=== PATIENT | male | born 1940 | race Caucasian/White ===

== ENCOUNTER 2019-07-06 07:37 | Outpatient (CLI) | payer MEDICARE, OTHER ==
[2006-06-03 08:03] VITALS: BP 137/73
[~2019-07-06] VITALS: Ht 185.4 cm; Wt 101.0 kg
[2019-07-06] MEDS ORDERED: VITAMIN C500 MG PO (08:15)
[2019-07-06] MEDS ORDERED: NATURAL E400 IU PO (08:15)
[2019-07-06] MEDS ORDERED: B-121000 MCG PO (08:16)
[2019-07-06] MEDS ORDERED: PRINIVIL20 MG PO (08:16)
[2019-07-06] MEDS ORDERED: LASIX 40MG TABL40 MG PO (08:17)
[2019-07-06] MEDS ORDERED: ASPIRIN E.C. 8181 MG PO (08:18)
[2019-07-06] MEDS ORDERED: ZOCOR 20MG20 MG PO (08:18)
[2019-07-06] MEDS ORDERED: MASON NATURAL1000 MG PO (08:19)
[2019-07-06] MEDS ORDERED: TOPROL XL 50MG50 MG PO (08:20)
[2019-07-06] MEDS ORDERED: COUMADIN 5MG5 MG/TAB PO (08:21)
[2019-07-06] MEDS ORDERED: MERIBIN5 MG PO (08:22)
[2019-07-06 08:37] LABS: BASO % 0.2 % (0.0-2.0); EOS # 0.1 (0.0-0.7); EOS % 2.2 % (0-4.0); GRAN # 3.2 (1.4-6.5); GRAN % 70.3 % (42.2-75.2); HEMOGLOBIN 13.1 g/dl (13.5-18.0); LYMPH # 0.7 (1.2-3.4); LYMPH % 16.3 % (20.0-51.0); MEAN CELL VOLUME 94 fl (80.0-100.0); MEAN CORPUSCULAR HEMOGLOBIN 30 pg (27.0-31.0); MEAN CORPUSCULAR HGB CONC 32 g/dl (33.0-37.0); MEAN PLATELET VOLUME 9.9 fl (7.4-10.4); MONO # 0.5 (0.1-0.6); MONO % 10.8 % (1.7-9.3); PLATELET COUNT 80 K/mm3 (130-400); RED BLOOD COUNT 4.38 M/mm3 (4.20-5.60); REDCELL DISTRIBUTION WIDTH-CV 14.3 % (11.5-14.5)
[2019-07-06 08:39] LABS: INR 4.4 (0.8-3.0)
[2019-07-06 08:45] LABS: PROTHROMBIN TIME 54.1 SECONDS (9.7-12.8)
--- NOTE | 2019-07-06 08:48 | NUR ---
Critical results received from lab. PT 54.1 and INR 4.4. These are reported to Dr. Klein in person at 0848. He speaks with the patient and his family. Patient is to be rescheduled for Tuesday07/09/19. He is instructed by Dr. Klein to stop his coumadin until then.
--- NOTE | 2019-07-06 09:20 | NUR ---
Dismissal instructions gone over with patient and patient's spouse. Both verbalize understanding and all questions answered. Patient understands that he is not supposed to hold his Warfarin for his rescheduled procedure on Tuesday.
[2019-07-06 09:24] VITALS: BP 123/59; PULSE 60; TEMP 97.8
== END 2019-07-06 09:20 | disposition home or self-care (01) ==
LOC: SDCO 07:37
PROVIDERS: Urology
DX: J90 Pleural effusion, not elsewhere classified (principal); I25.10 Atherosclerotic heart disease of native coronary artery without angina pectoris; I11.0 Hypertensive heart disease with heart failure; I50.9 Heart failure, unspecified; I73.9 Peripheral vascular disease, unspecified; G47.30 Sleep apnea, unspecified; Z79.01 Long term (current) use of anticoagulants; Z82.49 Family history of ischemic heart disease and other diseases of the circulatory system; Z87.891 Personal history of nicotine dependence; Z53.8 Procedure and treatment not carried out for other reasons

== ENCOUNTER 2019-07-09 07:12 | Outpatient (CLI) | payer MEDICARE, OTHER ==
[2006-06-03 08:03] VITALS: BP 137/73
[~2019-07-09] VITALS: Ht 185.4 cm; Wt 100.9 kg
[~2019-07-09 07:12] MED LIST: ASPIRIN E.C. 8181 MG PO; B-121000 MCG PO; COUMADIN 5MG5 MG/TAB PO; LASIX 40MG TABL40 MG PO; MASON NATURAL1000 MG PO; MERIBIN5 MG PO; NATURAL E400 IU PO; PRINIVIL20 MG PO; TOPROL XL 50MG50 MG PO; VITAMIN C500 MG PO; ZOCOR 20MG20 MG PO
[2019-07-09 07:52] VITALS: BP 105/53; PULSE 62; TEMP 97.6
[2019-07-09 08:03] LABS: INR 1.7 (0.8-3.0); PROTHROMBIN TIME 20.7 SECONDS (9.7-12.8)
[2019-07-09 08:50] VITALS: BP 99/54; PULSE 114; TEMP 97.6
--- NOTE | 2019-07-09 08:50 | NUR ---
Patient arrives back from IAC alert, denies nausea. Reports slight pain with deep breath. Bandaid on left mid back is clean/dry/intact. Spouse at bedside. Patient monitor applied, vitals stable. Patient given juice and muffin.
[2019-07-09 09:05] VITALS: BP 110/59; PULSE 121
--- NOTE | 2019-07-09 09:05 | NUR ---
Patient tolerates juice and muffin without any nausea. Radiology into see patient.
[2019-07-09 09:20] VITALS: BP 118/61; PULSE 72
--- NOTE | 2019-07-09 09:35 | NUR ---
Dr Klein reports patient's chest x-ray has no sign of pneumothorax and that patient can be discharged to home.
[2019-07-09 09:37] LABS: PLEURAL FLUID RBC 13000 /mm3 (0-0); PLEURAL FLUID WBC 1194 /mm3
[2019-07-09 09:39] LABS: PLEURAL FLUID APPEARANCE HAZY; PLEURAL FLUID COLOR AMBER
--- NOTE | 2019-07-09 09:40 | NUR ---
Dismissal instructions gone over with patient and patient's spouse. Both verbalize understanding and all questions answered.
--- NOTE | 2019-07-09 09:45 | NUR ---
Patient discharged to private vehicle via wheelchair without any complications. Patient and spouse leave thanking staff for services.
[2019-07-09 10:04] LABS: GLUCOSE,PLEURAL FLUID 111 mg/dL; TOTAL PROTEIN,PLEURAL FLUID 2.7 gm/dL
== END 2019-07-09 09:45 | disposition home or self-care (01) ==
LOC: SDCO 07:12
PROVIDERS: Internal Medicine Pulmonary Disease
DX: J90 Pleural effusion, not elsewhere classified (principal); I25.10 Atherosclerotic heart disease of native coronary artery without angina pectoris; I11.0 Hypertensive heart disease with heart failure; I50.9 Heart failure, unspecified; Z86.711 Personal history of pulmonary embolism; Z86.718 Personal history of other venous thrombosis and embolism; Z82.49 Family history of ischemic heart disease and other diseases of the circulatory system; Z77.22 Contact with and (suspected) exposure to environmental tobacco smoke (acute) (chronic); Z87.891 Personal history of nicotine dependence
CPT/HCPCS: 19804

== ENCOUNTER 2019-07-25 07:03 | Day surgery (SDC) | payer MEDICARE, OTHER ==
[2006-06-03 08:03] VITALS: BP 137/73
[~2019-07-25] VITALS: Ht 185.4 cm; Wt 101.0 kg
[2019-07-25] MEDS ORDERED: XALATAN EYE DROPS OU (07:52)
[2019-07-25 09:01] VITALS: BP 110/63; PULSE 113; TEMP 98.3
--- NOTE | 2019-07-25 09:01 | NUR ---
Pt returns from thoracentesis via cart and this RN assist to Ambulatory bay 7. present in room. Monitors on and alarms set. Pt has no complaints but has the desire to rest. Discussion occurs regarding performing the right thoracentesis later this morning. Pt and decide that today would be best if the chest x-rays look good. Procedure will be performed in radiology. Pt desires to rest and allowed to do so.
--- NOTE | 2019-07-25 09:30 | NUR ---
X-ray here for chest x-ray.
--- NOTE | 2019-07-25 09:40 | NUR ---
Pt ambulates to restroom with Xiomy, DIE SINKER APPRENTICE assist, and returns after voiding. remains in room. No complications.
--- NOTE | 2019-07-25 10:00 | NUR ---
Pt continues to rest.
[2019-07-25 10:39] VITALS: BP 116/60; PULSE 115; TEMP 97.2
[2019-07-25 11:05] VITALS: BP 111/60; PULSE 97
--- NOTE | 2019-07-25 11:17 | NUR ---
Transport pt via cart and this RN from Restrictive Preparation Operator to Ultrasound for right thoracentesis. Pt's desires to remain in pt room in Ambulatory.
--- NOTE | 2019-07-25 11:20 | NUR ---
Pt ambulates from cart to ultrasound procedure table. US Karlee tech present.
--- NOTE | 2019-07-25 11:38 | NUR ---
Dr. Nelson present and starting right thoracentesis procedure.
--- NOTE | 2019-07-25 12:00 | NUR ---
Pt ambulates from ultrasound procedure room to cart with RN assist. Then pt transported back to Wound Care Rn bay 7.
[2019-07-25 12:05] VITALS: BP 112/72; PULSE 63; TEMP 97.3
--- NOTE | 2019-07-25 12:05 | NUR ---
Pt tolerated procedure well. Monitors on and alarms set. Call light within reach. Pt's present. Pt desires water and tolerates well. Pt denies pain or nausea.
[2019-07-25 12:30] VITALS: BP 115/65; PULSE 59
[2019-07-25 12:45] VITALS: BP 110/60; PULSE 57
--- NOTE | 2019-07-25 12:45 | NUR ---
Radiologist called, and patient has no pneumothorax on right side.
[2019-07-25 12:55] LABS: PLEURAL FLUID RBC 6000 /mm3 (0-0); PLEURAL FLUID WBC 506 /mm3
[2019-07-25 12:56] LABS: PLEURAL FLUID APPEARANCE HAZY; PLEURAL FLUID COLOR YELLOW
--- NOTE | 2019-07-25 13:00 | NUR ---
Discharge instructions given to patient and . All questions answered to their satisfaction. Handed to them are a thank you card, discharge information, an appointment card, diagnosis information, and a discharge med sheet.
[2019-07-25 13:10] LABS: GLUCOSE,PLEURAL FLUID 108 mg/dL; TOTAL PROTEIN,PLEURAL FLUID 2.3 gm/dL
--- NOTE | 2019-07-25 13:15 | NUR ---
Pt transferred out of hospital via wheelchair and this RN to waiting private vehicle driven by .
== END 2019-07-25 13:15 | disposition home or self-care (01) ==
LOC: SDCO 07:03 → EDSTATUS 08:30 → SDCO 08:30
PROVIDERS: Internal Medicine Pulmonary Disease
DX: J90 Pleural effusion, not elsewhere classified (principal); R91.8 Other nonspecific abnormal finding of lung field; I50.9 Heart failure, unspecified; G47.30 Sleep apnea, unspecified; Z87.891 Personal history of nicotine dependence; Z79.82 Long term (current) use of aspirin; Z79.899 Other long term (current) drug therapy; Z99.89 Dependence on other enabling machines and devices
CPT/HCPCS: 19804

== ENCOUNTER 2019-09-04 03:25 | Inpatient (IN) | payer MEDICARE, OTHER ==
[2019-09-04] VITALS (449 sets, daily range): BP systolic 100–124; BP diastolic 53–61; PULSE 64–80; TEMP 97.6–100; O2SAT 77–100
[~2019-09-04] VITALS: Ht 188 cm; Wt 90.3 kg
[~2019-09-04 03:25] MED LIST changes: +XALATAN EYE DROPS OU
--- NOTE | 2019-09-04 04:50 | NUR ---
To room 325 via stretcher-direct admit from [facility]. Admission vitals 124/53, pulse 80, resp 26 o2 sat 86 on 3L/NC. LUCHO Tracy notified of arrival. Alert-oriented to person only. States "where am I and why am I here." LUCHO Tracy in room to evaluate. Requests spouse be called to determine baseline LOC and Medications. Attempt made x2 call home and cell of spouse and Son. Message left. Initial assessment complete. STAT orders received for ABG, EKG and Labs. Cardiopulmonary notified.
[2019-09-04 05:05] LABS: ARTERIAL BLD GAS O2 SATURATION 91.9 % (92-100); ARTERIAL BLD GAS TCO2 CT 37.7; ARTERIAL BLOOD GAS BASE EXCESS 5.4 (-2-2); ARTERIAL BLOOD GAS HCO3 35.2 meq/L (22-26); ARTERIAL BLOOD GAS PO2 67.9 mmHg (80-100); ARTERIAL BLOOD GAS pH 7.25 (7.35-7.45)
[2019-09-04 05:06] LABS: ARTERIAL BLOOD GAS PCO2 81.7 mmHg (35-45)
--- NOTE | 2019-09-04 05:15 | NUR ---
STAT order for bipap. Cardiopulmonary in room initiating.
--- NOTE | 2019-09-04 05:23 | NUR ---
Return call from Ywnxdjn-legfbv-mefz medication list. Med rec updated. States patient is not not usually confused but became confused tuesday/early tuesday morning-not knowing where he was. States she found him in living room tuesday night with home O2 off/shivering with no clothes on. States this has never happened before. Relayed info to LUCHO Tracy who is now speaking with spouse.
--- NOTE | 2019-09-04 05:50 | NUR ---
Report called to FERMIN Martinez. Transferred to ICU 8 via bed-cardiopulmonary present for bipap.
[2019-09-04 06:02] LABS: HEMATOCRIT 39.8 % (42.0-52.0); HEMOGLOBIN 11.6 g/dl (13.5-18.0); MEAN CELL VOLUME 100 fl (80.0-100.0); MEAN CORPUSCULAR HEMOGLOBIN 29 pg (27.0-31.0); MEAN CORPUSCULAR HGB CONC 29 g/dl (33.0-37.0); MEAN PLATELET VOLUME 9.4 fl (7.4-10.4); PLATELET COUNT 147 K/mm3 (130-400); RED BLOOD COUNT 3.98 M/mm3 (4.20-5.60); REDCELL DISTRIBUTION WIDTH-CV 14.4 % (11.5-14.5)
[2019-09-04 06:11] LABS: ANION GAP 6 mmol/L (7-16); BLOOD UREA NITROGEN 42 mg/dL (9-20); CALCIUM 9.1 mg/dL (8.4-10.2); CARBON DIOXIDE 36 mmol/L (22-30); CHLORIDE 100 mmol/L (98-107); CREATININE, serum 0.94 (0.66-1.25); GLUCOSE 188 mg/dL (74-106); MAGNESIUM 2.2 mg/dL (1.6-2.3); PHOSPHOROUS 4.8 mg/dL (2.5-4.5); POTASSIUM 5.4 mmol/L (3.4-5.0); SODIUM 143 mmol/L (137-145)
[2019-09-04 06:14] LABS: INR 4.2 (0.8-3.0)
[2019-09-04 06:24] LABS: TROPONIN-I < 0.012 ng/mL (0.000-0.035)
[2019-09-04 06:37] LABS: ARTERIAL BLD GAS O2 SATURATION 96.9 % (92-100); ARTERIAL BLD GAS TCO2 CT 34.4; ARTERIAL BLOOD GAS BASE EXCESS 3.5 (-2-2); ARTERIAL BLOOD GAS HCO3 32.2 meq/L (22-26); ARTERIAL BLOOD GAS PO2 93.9 mmHg (80-100); ARTERIAL BLOOD GAS pH 7.27 (7.35-7.45)
[2019-09-04 06:40] LABS: ARTERIAL BLOOD GAS PCO2 71.8 mmHg (35-45)
[2019-09-04 06:42] LABS: THYROID STIMULATING HORMONE < 0.015 uIU/mL (0.465-4.680)
[2019-09-04 06:46] LABS: HYALINE CAST >12 /lpf; MUCOUS Present /lpf; PH 5 (5-8); SQUAMOUS EPITHELIAL 0-2 /hpf; URINE APPEARANCE Clear; URINE BACTERIA Rare /hpf; URINE BILIRUBIN Negative (NEGATIVE); URINE BLOOD Negative (NEGATIVE); URINE COLOR Yellow; URINE GLUCOSE Negative (NEGATIVE); URINE KETONE Negative (NEGATIVE); URINE LEUKOCYTE ESTERASE Negative (NEGATIVE); URINE NITRATE Negative (NEGATIVE); URINE PROTEIN(semi-quant) Negative (NEGATIVE); URINE RBC 0-2 /hpf; URINE UROBILINOGEN Negative (NEGATIVE)
[2019-09-04 06:48] LABS: PROTHROMBIN TIME 50.7 SECONDS (9.7-12.8)
--- NOTE | 2019-09-04 07:15 | NUR ---
Report received from Cher at 0531, patient arrive in ICU via bed at 0550. Patient able to follow commands when arrive and showed steady decline in mental status over the next hour. Glucose checked-see results, pupils equal and reactive but patient only responds to painful stimuli. eICU called to check in with patient at 0639-notified provider of mental status change and received new orders Notified Dr. Pillai of status change, ABG results and eICU orders at 0645- asked to consult Dr. Ernie Klein called at 0656-received orders to have anesthesia intubate, surgery to place central line if AIVS not available and specific vent settings Notified , Miguelito of patient status and need to intubate at 0705-gave verbal agreement to intubate
[2019-09-04 07:20] LABS: BAND 1 % (0-10); LYMPHOCYTE 3 % (20.0-51.0); NEUTROPHILS 96 % (42.0-75.2); PLATELET ESTIMATE NORMAL (NORMAL)
[2019-09-04 09:21] LABS: ARTERIAL BLD GAS O2 SATURATION 98.4 % (92-100); ARTERIAL BLD GAS TCO2 CT 32.7; ARTERIAL BLOOD GAS BASE EXCESS 7.3 (-2-2); ARTERIAL BLOOD GAS HCO3 31.4 meq/L (22-26); ARTERIAL BLOOD GAS PCO2 42.5 mmHg (35-45); ARTERIAL BLOOD GAS PO2 102.3 mmHg (80-100); ARTERIAL BLOOD GAS pH 7.49 (7.35-7.45)
--- NOTE | 2019-09-04 09:41 | NUR ---
Pleurx drain with thick yellow green drainage under dressing. Old dressing removed and cap and site cleaned and suction bottle attached with less than 3ml of drainage over a [address] Klein removed drain and applied pressure. Tegaderm placed. Charlette CHRISTENSEN in room and obtained culture of tip of pleurx drain itself.
--- NOTE | 2019-09-04 09:59 | NUR ---
Vancomycin Initial Dosing Pharmacy Note Ordering provider: MD Ernie Indication/duration: EMPIRIC LABS: WBC 6.2, SCr 0.94, CrCl 56 Recommendation: vancomycin 17mg/kg Maintenance dose: 1.5 grams every 12 hours Trough goal: 15-20 ug/mL. trough 09/05 @0930
--- NOTE | 2019-09-04 10:31 | NUR ---
The patient is intubated at this time. Therefore, LARRY contacted the patient's , Miguelito (ph# [phone]) to complete initial intake. The patient lives in [place] with Miguelito. The patient has a cane and a walker which he purchased to have knee replacement at the first of the year. Miguelito reports the patient did not have the surgery due to other medical conditions that arose. The patient uses oxygen at home at 2L but yesterday, 09/02 went to 3L. [employer] provided supplies. The patient's PCP is Dr. Plummer and patient receives medications from [facility]. The patient does not have advanced directives in the EMR. Miguelito was provided with contact information in case she has any questions. client services vice president will continue to monitor.
[2019-09-04 14:30] LABS: ARTERIAL BLD GAS O2 SATURATION 91.4 % (92-100); ARTERIAL BLD GAS TCO2 CT 34.3; ARTERIAL BLOOD GAS BASE EXCESS 9.8 (-2-2); ARTERIAL BLOOD GAS HCO3 33.1 meq/L (22-26); ARTERIAL BLOOD GAS PCO2 39.3 mmHg (35-45); ARTERIAL BLOOD GAS PO2 52.3 mmHg (80-100); ARTERIAL BLOOD GAS pH 7.54 (7.35-7.45)
[2019-09-04 17:15] LABS: ARTERIAL BLD GAS O2 SATURATION 97.6 % (92-100); ARTERIAL BLD GAS TCO2 CT 32.1; ARTERIAL BLOOD GAS BASE EXCESS 6.2 (-2-2); ARTERIAL BLOOD GAS HCO3 30.7 meq/L (22-26); ARTERIAL BLOOD GAS PCO2 44.2 mmHg (35-45); ARTERIAL BLOOD GAS PO2 99.4 mmHg (80-100); ARTERIAL BLOOD GAS pH 7.46 (7.35-7.45)
[2019-09-04 17:36] LABS: INR 2.6 (0.8-3.0); PROTHROMBIN TIME 31.8 SECONDS (9.7-12.8)
[2019-09-04 17:38] LABS: CALCIUM 9.2 mg/dL (8.4-10.2); CREATININE, serum 1.07 (0.66-1.25); POTASSIUM 4.6 mmol/L (3.4-5.0)
[2019-09-04 23:08] LABS: COLLECTION METHOD CLEAN CATCH
[2019-09-05] VITALS (872 sets, daily range): BP systolic 95–117; BP diastolic 51–63; PULSE 71–88; TEMP 97.4–98.7; O2SAT 61–100
[2019-09-05 04:59] LABS: ARTERIAL BLD GAS O2 SATURATION 95.5 % (92-100); ARTERIAL BLD GAS TCO2 CT 34.3; ARTERIAL BLOOD GAS BASE EXCESS 8.9 (-2-2); ARTERIAL BLOOD GAS HCO3 32.9 meq/L (22-26); ARTERIAL BLOOD GAS PO2 75.1 mmHg (80-100)
[2019-09-05 05:31] LABS: BASO % 0.2 % (0.0-2.0); GRAN # 5.2 (1.4-6.5); GRAN % 83.4 % (42.2-75.2); HEMOGLOBIN 10.5 g/dl (13.5-18.0); LYMPH # 0.5 (1.2-3.4); LYMPH % 7.4 % (20.0-51.0); MEAN CELL VOLUME 96 fl (80.0-100.0); MEAN CORPUSCULAR HEMOGLOBIN 30 pg (27.0-31.0); MEAN CORPUSCULAR HGB CONC 31 g/dl (33.0-37.0); MEAN PLATELET VOLUME 10.1 fl (7.4-10.4); MONO # 0.5 (0.1-0.6); MONO % 8.7 % (1.7-9.3); PLATELET COUNT 108 K/mm3 (130-400); RED BLOOD COUNT 3.56 M/mm3 (4.20-5.60); REDCELL DISTRIBUTION WIDTH-CV 14.9 % (11.5-14.5)
[2019-09-05 05:32] LABS: HEMATOCRIT 34.2 % (42.0-52.0)
[2019-09-05 05:33] LABS: BILIRUBIN,TOTAL 2.6 mg/dL (0.0-1.0); CALCIUM 8.9 mg/dL (8.4-10.2); CREATININE, serum 1.39 (0.66-1.25); MAGNESIUM 2.1 mg/dL (1.6-2.3); PHOSPHOROUS 3.4 mg/dL (2.5-4.5); POTASSIUM 4.3 mmol/L (3.4-5.0); TOTAL PROTEIN 6.5 gm/dL (6.4-8.2)
[2019-09-05 05:35] LABS: INR 1.9 (0.8-3.0)
[2019-09-05 05:51] LABS: CHOLESTEROL RISK RATIO 5.2
--- NOTE | 2019-09-05 07:20 | NUR ---
Bedside report received from FERMIN King.
--- NOTE | 2019-09-05 08:00 | NUR ---
Assessment completed. Pt sedated, on ventilator. Bilat soft wrist restraints remain on. Pt reaches for ETT/OGT with hand during repositioning. Pt becomes more agitated after turn. Propofol gtt increased for sedation. Remains on propofol and fentanyl gtt for sedation. Pt tolerating ventilator, resp even, unlabored. Oral care provided. minimal secretions from ETT and mouth. Booth to DD with venessa, clear urine. VSS. Will monitor.
--- NOTE | 2019-09-05 11:22 | NUR ---
SW attended clinical rounds with the team. The patient is to have a Thoracentesis on 09/05. The patient remains intubated. Will continue to monitor.
--- NOTE | 2019-09-05 12:00 | NUR ---
Assessment completed. Pt sedated, on ventilator. Resp even, unlabored. Pt opens eyes with turn, moves hands toward ETT with turn. bilat soft wrist restraints remain on.
--- NOTE | 2019-09-05 19:37 | NUR ---
BEDSIDE REPORT GIVEN TO FERMIN BYRD.
[2019-09-05 21:38] LABS: ARTERIAL BLD GAS O2 SATURATION 96.4 % (92-100); ARTERIAL BLD GAS TCO2 CT 32.7; ARTERIAL BLOOD GAS BASE EXCESS 8.1 (-2-2); ARTERIAL BLOOD GAS HCO3 31.5 meq/L (22-26); ARTERIAL BLOOD GAS PCO2 39.1 mmHg (35-45); ARTERIAL BLOOD GAS PO2 83.3 mmHg (80-100); ARTERIAL BLOOD GAS pH 7.52 (7.35-7.45)
[2019-09-06] VITALS (1268 sets, daily range): BP systolic 94–129; BP diastolic 49–71; PULSE 70–99; TEMP 97.9–99.7; O2SAT 88–100
[2019-09-06 05:26] LABS: BASO % 0.2 % (0.0-2.0); EOS % 0.4 % (0-4.0); GRAN # 4.3 (1.4-6.5); GRAN % 84.6 % (42.2-75.2); HEMOGLOBIN 10.2 g/dl (13.5-18.0); LYMPH # 0.3 (1.2-3.4); LYMPH % 6.3 % (20.0-51.0); MEAN CELL VOLUME 96 fl (80.0-100.0); MEAN CORPUSCULAR HEMOGLOBIN 30 pg (27.0-31.0); MEAN CORPUSCULAR HGB CONC 31 g/dl (33.0-37.0); MONO # 0.4 (0.1-0.6); MONO % 8.1 % (1.7-9.3); PLATELET COUNT 106 K/mm3 (130-400); RED BLOOD COUNT 3.44 M/mm3 (4.20-5.60)
[2019-09-06 05:35] LABS: INR 1.6 (0.8-3.0); PROTHROMBIN TIME 18.7 SECONDS (9.7-12.8)
[2019-09-06 05:39] LABS: ALBUMIN 2.9 gm/dL (3.5-5.0); BILIRUBIN,TOTAL 1.8 mg/dL (0.0-1.0); CALCIUM 8.2 mg/dL (8.4-10.2); CREATININE, serum 1.32 (0.66-1.25); MAGNESIUM 2.2 mg/dL (1.6-2.3); PHOSPHOROUS 3.4 mg/dL (2.5-4.5); POTASSIUM 3.7 mmol/L (3.4-5.0); TOTAL PROTEIN 6.3 gm/dL (6.4-8.2)
[2019-09-06 05:42] LABS: ARTERIAL BLD GAS O2 SATURATION 96.5 % (92-100); ARTERIAL BLD GAS TCO2 CT 35.5; ARTERIAL BLOOD GAS BASE EXCESS 9.5 (-2-2); ARTERIAL BLOOD GAS HCO3 34.1 meq/L (22-26); ARTERIAL BLOOD GAS PCO2 46.3 mmHg (35-45); ARTERIAL BLOOD GAS PO2 86.2 mmHg (80-100); ARTERIAL BLOOD GAS pH 7.49 (7.35-7.45)
--- NOTE | 2019-09-06 08:30 | NUR ---
VERBAL CONSENT FOR CENTRAL LINE PLACEMENT AND RIGHT SIDED THORACENTESIS OBTAINED FROM , KERI GARCIA. DANNA WELLINGTON SIGNED SECOND WITNESS ON CONSENT FORMS. ASSISTED DR CHOWDHURY IN RIGHT IJ CENTRAL LINE PLACEMENT. 10MG VECURONIUM ADMINISTERED PRIOR TO PROCEDURE PER DR CHOWDHURY ORDER. PROPOFOL AND FENT GTT'S INCREASED FOR SEDATION. PT TOLERATED WELL. PLACEMENT VERFIED VIA XRAY. DR CHOWDHURY ATTEMPTED TO VISUALIZE RIGHT PLEURAL EFFUSION BUT WAS UNSUCCESSFUL. DR CHOWDHURY SPOKE WITH RADIOLOGY FOR THORACENTESIS. SPOKE WITH JESS IN US. PLAN IS TO PEFORM THORA BEFORE 1300.
--- NOTE | 2019-09-06 13:00 | NUR ---
JESS FROM US PRESENT TO ASSESS PLEURAL SPACE FOR FLUID FOR POSSIBLE THORACENTESIS. JESS PREPPED PATIENT FOR THORA AND CONTACTED DR JOAQUIN TO PERFORM THORACENTESIS. DR JOAQUIN INSERTED PLEUREX AND REMOVED 2200 OF SEROUS FLUID FROM RIGHT PLEURAL SPACE. FLUID SENT FOR PATHOLOGY. PATIENT TOLERATED WELL. SITE COVERED WITH BANDAID.
--- NOTE | 2019-09-06 14:00 | NUR ---
PERIPHERAL IV TO RIGHT FOREARM AND RIGHT AC DISCONTINUED D/T CENTRAL LINE PLACEMENT
[2019-09-06 14:15] LABS: GLUCOSE,PLEURAL FLUID 142 mg/dL; TOTAL PROTEIN,PLEURAL FLUID 2.2 gm/dL
[2019-09-06 14:29] LABS: PLEURAL FLUID RBC 18000 /mm3 (0-0); PLEURAL FLUID WBC 351 /mm3
[2019-09-06 14:31] LABS: PLEURAL FLUID COLOR RED
[2019-09-06 14:32] LABS: PLEURAL FLUID APPEARANCE HAZY
--- NOTE | 2019-09-06 16:00 | NUR ---
PER PATIENT'S REQUEST PATIENT'S FACE SHAVED.
--- NOTE | 2019-09-06 16:58 | NUR ---
PATIENT'S AND SON BOTH CALLED IN TO GET UPDATE. FAMILY UPDATED ON PATIENT'S STATUS. DID HAVE SOME QUESTIONS REGARDING CODE STATUS. STATED SHE WILL CONSULT SONS AND THEN CALL BACK TODAY OR TOMORROW REGARDING CODE STATUS.
--- NOTE | 2019-09-06 18:46 | NUR ---
SPOKE WITH PATIENT'S AGAIN AND AFTER SPEAKING WITH HER SONS THE WOULD LIKE TO MAKE PATIENT A DNR. I CLARIFIED THAT OF NOW PATIENT IS A CHEMICAL CODE ONLY. STATES SHE WOULD LIKE TO JUST LET PATIENT GO PEACEFULLY IF HIS HEART WERE TO STOP. WILL CALL PROVIDER AND NOTIFY.
--- NOTE | 2019-09-06 18:49 | NUR ---
AMEYA JEWELL, CALLED AND NOTIFIED OF CODE STATUS UPDATE. WOULD ALSO LIKE PROVIDER TO CALL AND UPDATE HER TOMORROW SO BEST STATES SHE WILL PASS IT ON TO CALL TOMORROW FOR UPDATE TO ONCOMING PROVIDER.
[2019-09-07] VITALS (1313 sets, daily range): BP systolic 100–120; BP diastolic 48–71; PULSE 70–88; TEMP 98–100.5; O2SAT 45–100
[2019-09-07 05:13] LABS: ALBUMIN 2.6 gm/dL (3.5-5.0); BILIRUBIN,TOTAL 1.8 mg/dL (0.0-1.0); CREATININE, serum 1.41 (0.66-1.25); MAGNESIUM 2.6 mg/dL (1.6-2.3); PHOSPHOROUS 3.7 mg/dL (2.5-4.5); POTASSIUM 3.7 mmol/L (3.4-5.0)
[2019-09-07 05:32] LABS: ARTERIAL BLD GAS O2 SATURATION 98.3 % (92-100); ARTERIAL BLD GAS TCO2 CT 37.5; ARTERIAL BLOOD GAS HCO3 35.9 meq/L (22-26); ARTERIAL BLOOD GAS pH 7.43 (7.35-7.45)
[2019-09-07 05:33] LABS: ARTERIAL BLOOD GAS PO2 123.7 mmHg (80-100)
--- NOTE | 2019-09-07 07:15 | NUR ---
BEDSIDE REPORT RECEIVED FROM FERMIN BYRD.
--- NOTE | 2019-09-07 08:25 | NUR ---
DR CHOWDHURY AT BEDSIDE. PROPOFOL AND FENTANYL GTTS ON HOLD.
--- NOTE | 2019-09-07 08:45 | NUR ---
Propofol and Fentanyl gtts turned off at 0815. Pt more alert, slightly agitated. Explained CPAP trial to pt. Pt follows simple commands, nods head. RT notified pt is more alert. Will come down to change vent setting to CPAP.
--- NOTE | 2019-09-07 09:20 | NUR ---
Pt on CPAP 01/15, fio2 35% at 0900. tidal volume 270-300ml. Pt became more agitated at 0915. RT notified. low tidal volumes, HR 110s, O2 sats remain above 95%. RT suctioned thick, keene sputum from ETT. Bilat soft wrist restraints remain on. Pt tries to reach for ETT during suction. Explained CPAP trial with pt. Pt more calm after suctioning. HR back to 90s. SPO2 97%. Remains on CPAP trial. Tidal volumes now 350ml.
[2019-09-07 09:41] LABS: MUCOUS Present /lpf; PH 8 (5-8); SQUAMOUS EPITHELIAL None Seen /hpf; URINE APPEARANCE Clear; URINE BACTERIA None Seen /hpf; URINE BILIRUBIN Negative (NEGATIVE); URINE BLOOD 2+ (NEGATIVE); URINE COLOR Yellow; URINE GLUCOSE Negative (NEGATIVE); URINE KETONE Negative (NEGATIVE); URINE LEUKOCYTE ESTERASE Trace (NEGATIVE); URINE NITRATE Negative (NEGATIVE); URINE PROTEIN(semi-quant) 1+ (NEGATIVE); URINE RBC 20-50 /hpf; URINE UROBILINOGEN >=4.0 mg/dL (NEGATIVE)
[2019-09-07 09:53] LABS: COLLECTION METHOD CATHETER
--- NOTE | 2019-09-07 11:00 | NUR ---
DRESSING CHANGE ON RIGHT IJ TLC. OLD BLOOD NOTED ON PREVIOUS BIOPATCH. SUTURES REMAIN INTACT. SITE CLEANED, NEW BIOPATCH APPLIED AND TEGADERM.
--- NOTE | 2019-09-07 11:16 | NUR ---
OFF CPAP, VENT BACK TO PREVIOUS SETTINGS. PROPOFOL GTT STARTED FOR SEDATION. PT TRYING TO REACH FOR ETT. BILAT SOFT WRIST RESTRAINTS REMAIN ON.
--- NOTE | 2019-09-07 12:33 | NUR ---
The patient failed an attempt at CPAP with pressure support trial and was reintubated this morning. Will continue to monitor.
--- NOTE | 2019-09-07 13:02 | NUR ---
LARRY contacted the patient's , Miguelito. Miguelito states she got a phone call from the physician this AM. LARRY gave Miguelito the weekend Trigence phone number in case she had any questions over the weekend.
--- NOTE | 2019-09-07 13:16 | NUR ---
PHYSICAL THERAPY WORKING WITH PT. PT BECAME VERY AGITATED. PHYSICAL THERAPY STOPPED AND SEDATION INCREASED.
[2019-09-07 16:46] LABS: BASO % 0.5 % (0.0-2.0); EOS # 0.1 (0.0-0.7); EOS % 2.9 % (0-4.0); GRAN # 3.3 (1.4-6.5); GRAN % 79.5 % (42.2-75.2); LYMPH # 0.3 (1.2-3.4); LYMPH % 8.3 % (20.0-51.0); MEAN CELL VOLUME 99 fl (80.0-100.0); MEAN CORPUSCULAR HGB CONC 30 g/dl (33.0-37.0); MEAN PLATELET VOLUME 9.9 fl (7.4-10.4); MONO # 0.4 (0.1-0.6); MONO % 8.6 % (1.7-9.3); PLATELET COUNT 78 K/mm3 (130-400); RED BLOOD COUNT 3.26 M/mm3 (4.20-5.60); REDCELL DISTRIBUTION WIDTH-CV 14.6 % (11.5-14.5)
[2019-09-07 16:47] LABS: INR 1.5 (0.8-3.0); PROTHROMBIN TIME 17.9 SECONDS (9.7-12.8)
[2019-09-07 16:57] LABS: HEMATOCRIT 32.4 % (42.0-52.0); HEMOGLOBIN 9.7 g/dl (13.5-18.0); MEAN CORPUSCULAR HEMOGLOBIN 30 pg (27.0-31.0)
--- NOTE | 2019-09-07 17:10 | NUR ---
Pt not on sedation vacation. Pt wakes up to voice, moves all extrem. Becomes agitated.
--- NOTE | 2019-09-07 18:00 | NUR ---
Right IJ TLC continues to ooze from site. Area cleaned, biopatch and 4x4 gauze applied with tegaderm. Sutures remain intact. Pt's gown and pillow case changed.
--- NOTE | 2019-09-07 18:46 | NUR ---
Pt's and son updated by phone of pt's status. Aware of infectious disease consult today. Questions answered to their satisfaction. Pt remains sedated, on ventilator. Resp even, unlabored. Opens eyes during turns. Squeezes both hands. Falls back asleep when not stimulated.
--- NOTE | 2019-09-07 19:28 | NUR ---
Report given to FERMIN Orr.
[2019-09-08] VITALS (1010 sets, daily range): BP systolic 90–125; BP diastolic 48–98; PULSE 71–95; TEMP 97.5–98.8; O2SAT 66–100
[2019-09-08 05:03] LABS: BASO % 0.2 % (0.0-2.0); EOS # 0.2 (0.0-0.7); EOS % 3.6 % (0-4.0); GRAN # 3.2 (1.4-6.5); LYMPH # 0.4 (1.2-3.4); LYMPH % 9.2 % (20.0-51.0); MEAN CELL VOLUME 100 fl (80.0-100.0); MEAN CORPUSCULAR HEMOGLOBIN 30 pg (27.0-31.0); MEAN CORPUSCULAR HGB CONC 30 g/dl (33.0-37.0); MEAN PLATELET VOLUME 10.4 fl (7.4-10.4); MONO # 0.4 (0.1-0.6); MONO % 8.5 % (1.7-9.3); PLATELET COUNT 78 K/mm3 (130-400); RED BLOOD COUNT 3.36 M/mm3 (4.20-5.60); REDCELL DISTRIBUTION WIDTH-CV 14.6 % (11.5-14.5)
[2019-09-08 05:04] LABS: HEMATOCRIT 33.7 % (42.0-52.0)
--- NOTE | 2019-09-08 05:06 | NUR ---
Sedation vacation started. Plan is to have all sedation off by [address] Klein. Staff at bedside to help reorient and calm patient as needed.
[2019-09-08 05:13] LABS: CALCIUM 8.1 mg/dL (8.4-10.2); CREATININE, serum 1.11 (0.66-1.25); POTASSIUM 3.5 mmol/L (3.4-5.0)
[2019-09-08 05:40] LABS: ARTERIAL BLD GAS O2 SATURATION 97.5 % (92-100); ARTERIAL BLD GAS TCO2 CT 34.4; ARTERIAL BLOOD GAS HCO3 32.8 meq/L (22-26); ARTERIAL BLOOD GAS PCO2 52.7 mmHg (35-45); ARTERIAL BLOOD GAS PO2 97.9 mmHg (80-100); ARTERIAL BLOOD GAS pH 7.41 (7.35-7.45)
--- NOTE | 2019-09-08 07:21 | NUR ---
PT SWITHCED TO CPAP 5/+5 TRIAL AT THIS TIME. SEDATION TURNED OFF. FERMIN JALLOH IN ROOM. PT BOOSTED AND SAT UP IN BED. PT ALERT AND FOLLOWING COMMANDS. SUCTIONED FOR SMALL AMOUNT OF THICK PEREZ. BBSH COARSE WITH DIMINISHED BASES.
--- NOTE | 2019-09-08 08:30 | NUR ---
Pt tolerating venitlator mostly, occasionaly pt becomes aggitated, attempting to slide self down in bed and attempting to pull at ETTube. Pt oriented, educated and calmed down. Pt able to use nonverbal communication to state pt is uncomfortable with ETTube and wishing it be removed.
--- NOTE | 2019-09-08 09:40 | NUR ---
PT EXTUBATED PER DR. CHOWDHURY AFTER SEVERAL HOURS OF CPAP. PT EXTUBATED TO 5L OM. NO DISTRESS NOTED. SUCTIONED PRIOR TO EXTUBATION FOR A SMALL AMOUNT OF PEREZ SECRETIONS. NO STRIDOR NOTED.
--- NOTE | 2019-09-08 10:54 | NUR ---
0940 pt extubated to OxyMask with MD Ernie present in ICU. Pt tolerated well. 1030 pt transfered from bed to recliner with assistance of physical therapy. Pt was unable to stand or put full weight on legs. Pt alert, confused on location and situation, following commands and agrees after education provided on how and when to use call light. Chair Alarm in place. Pt's spouse Miguelito called and updated and discussed new goals and plan of care Call light in reach
--- NOTE | 2019-09-08 11:00 | NUR ---
PT ON 3LNC AT THIS TIME. NO DISTRESS NOTED AT THIS TIME.
--- NOTE | 2019-09-08 12:00 | NUR ---
Pt alert, unable to answer questions appropriately. MD Ernie notified - ABG at 1300 to be completed.
--- NOTE | 2019-09-08 13:23 | NUR ---
ABG results phoned from RT Latonya - MD Ernie here on unit and notified. MD Ernie and I obtained informed consent to reintubate ptMarciano Farley (spouse) understands and repeats back risks and necessity for continued mechanical ventilation. 1328 Anesthesia Paged 1329 RT Latonya, Juani,FERMIN and MD Ernie in room 1330 Srinivas Li CRNA phoned in 1345 COCOA ROOM OPERATOR on unit 1348 Procedural Timeout completed by myself - Name, , Allergies, consent obtained via telephone with spouse, and procedure announced out loud - all in agreement 1352 ETT insertion - bilateral breathsounds auscultated, SpO2>97% 1356 Restraints applied 1400 OG Tube inserted - secured at 57cm at teeth - placement confirmed with air insertion heard via stethoscope 1410 XRay in room
[2019-09-08 13:24] LABS: ARTERIAL BLD GAS O2 SATURATION 97.7 % (92-100); ARTERIAL BLD GAS TCO2 CT 32.9; ARTERIAL BLOOD GAS HCO3 30.7 meq/L (22-26); ARTERIAL BLOOD GAS PO2 110.3 mmHg (80-100); ARTERIAL BLOOD GAS pH 7.26 (7.35-7.45)
[2019-09-08 13:25] LABS: ARTERIAL BLOOD GAS PCO2 70.3 mmHg (35-45)
--- NOTE | 2019-09-08 17:09 | NUR ---
Sedation vacation not completed d/t recent intubation per MD Ernie Pt is able to open eyes and track with stimulus
[2019-09-08 18:08] LABS: ARTERIAL BLD GAS O2 SATURATION 98.8 % (92-100); ARTERIAL BLD GAS TCO2 CT 29.9; ARTERIAL BLOOD GAS BASE EXCESS 3.6 (-2-2); ARTERIAL BLOOD GAS HCO3 28.5 meq/L (22-26); ARTERIAL BLOOD GAS PCO2 44.8 mmHg (35-45); ARTERIAL BLOOD GAS pH 7.42 (7.35-7.45)
[2019-09-08 18:10] LABS: ARTERIAL BLOOD GAS PO2 131.2 mmHg (80-100)
--- NOTE | 2019-09-08 19:55 | NUR ---
Patient assessment completed and charted at this time, please see documentation for details. Patient resting in bed, tolerating ventilator at this time. No new issues to report, no family at bedside. Will continue to monitor.
[2019-09-09] VITALS (965 sets, daily range): BP systolic 86–104; BP diastolic 50–61; PULSE 70–80; TEMP 97.8–98.4; O2SAT 78–100
--- NOTE | 2019-09-09 05:00 | NUR ---
Sedation vacation not attempted at this time. Patient easily arrousable, comfortable with no stimuli, but combative with any intervention.
[2019-09-09 05:15] LABS: ARTERIAL BLD GAS O2 SATURATION 96.5 % (92-100); ARTERIAL BLD GAS TCO2 CT 31.1; ARTERIAL BLOOD GAS HCO3 29.6 meq/L (22-26); ARTERIAL BLOOD GAS PCO2 49.2 mmHg (35-45); ARTERIAL BLOOD GAS PO2 88.5 mmHg (80-100)
[2019-09-09 07:38] LABS: BASO % 0.3 % (0.0-2.0); EOS # 0.2 (0.0-0.7); EOS % 4.2 % (0-4.0); GRAN # 2.8 (1.4-6.5); GRAN % 73.5 % (42.2-75.2); LYMPH # 0.5 (1.2-3.4); LYMPH % 11.8 % (20.0-51.0); MEAN CELL VOLUME 100 fl (80.0-100.0); MEAN CORPUSCULAR HGB CONC 29 g/dl (33.0-37.0); MEAN PLATELET VOLUME 10.3 fl (7.4-10.4); MONO # 0.4 (0.1-0.6); MONO % 9.9 % (1.7-9.3); PLATELET COUNT 83 K/mm3 (130-400); RED BLOOD COUNT 3.37 M/mm3 (4.20-5.60); REDCELL DISTRIBUTION WIDTH-CV 14.4 % (11.5-14.5)
[2019-09-09 07:49] LABS: CALCIUM 8.3 mg/dL (8.4-10.2); CREATININE, serum 1.11 (0.66-1.25); MAGNESIUM 2.8 mg/dL (1.6-2.3); PHOSPHOROUS 2.7 mg/dL (2.5-4.5); POTASSIUM 3.9 mmol/L (3.4-5.0)
[2019-09-09 07:54] LABS: HEMATOCRIT 33.7 % (42.0-52.0); HEMOGLOBIN 9.7 g/dl (13.5-18.0); MEAN CORPUSCULAR HEMOGLOBIN 29 pg (27.0-31.0)
[2019-09-10] VITALS (1108 sets, daily range): BP systolic 93–109; BP diastolic 50–71; PULSE 75–92; TEMP 97.9–98.8; O2SAT 61–100
[2019-09-10 05:07] LABS: BASO % 0.2 % (0.0-2.0); EOS # 0.1 (0.0-0.7); EOS % 3.4 % (0-4.0); GRAN # 3.2 (1.4-6.5); GRAN % 77.4 % (42.2-75.2); LYMPH # 0.3 (1.2-3.4); LYMPH % 7.7 % (20.0-51.0); MEAN CELL VOLUME 100 fl (80.0-100.0); MEAN CORPUSCULAR HGB CONC 30 g/dl (33.0-37.0); MEAN PLATELET VOLUME 10.7 fl (7.4-10.4); MONO # 0.5 (0.1-0.6); MONO % 11.1 % (1.7-9.3); PLATELET COUNT 81 K/mm3 (130-400); RED BLOOD COUNT 3.24 M/mm3 (4.20-5.60); REDCELL DISTRIBUTION WIDTH-CV 14.3 % (11.5-14.5)
[2019-09-10 05:08] LABS: HEMATOCRIT 32.3 % (42.0-52.0); HEMOGLOBIN 9.7 g/dl (13.5-18.0); MEAN CORPUSCULAR HEMOGLOBIN 30 pg (27.0-31.0)
[2019-09-10 05:23] LABS: ALBUMIN 2.6 gm/dL (3.5-5.0); BILIRUBIN,TOTAL 1.3 mg/dL (0.0-1.0); CALCIUM 8.2 mg/dL (8.4-10.2); MAGNESIUM 2.6 mg/dL (1.6-2.3); PHOSPHOROUS 3.1 mg/dL (2.5-4.5); POTASSIUM 3.9 mmol/L (3.4-5.0); TOTAL PROTEIN 5.9 gm/dL (6.4-8.2)
[2019-09-10 05:29] LABS: PRE ALBUMIN 6.9 mg/dL (17.6-36.0)
[2019-09-10 05:41] LABS: ARTERIAL BLD GAS TCO2 CT 27.9; ARTERIAL BLOOD GAS BASE EXCESS 1.3 (-2-2); ARTERIAL BLOOD GAS HCO3 26.5 meq/L (22-26); ARTERIAL BLOOD GAS PCO2 44.7 mmHg (35-45); ARTERIAL BLOOD GAS PO2 91.5 mmHg (80-100); ARTERIAL BLOOD GAS pH 7.39 (7.35-7.45)
--- NOTE | 2019-09-10 06:29 | NUR ---
Pt's Systolic BP has stayed in 90s, weaning trial done briefly with Vts 350-450, RR 20-24, BP, HR, SpO2 remained stable. After 10-15 minutes on spontaneous breathing trial, Vts less consistant- 200s more often. Discontinued weaning trial.
--- NOTE | 2019-09-10 07:00 | NUR ---
Bedside report received from FERMIN Orr. Patient intubated and sedated. All lines, tubes, gtts, vent settings reviewed. Plan of care reviewed. Care taken over.
[2019-09-10 08:15] LABS: INR 1.2 (0.8-3.0); PROTHROMBIN TIME 14.5 SECONDS (9.7-12.8)
--- NOTE | 2019-09-10 10:38 | NUR ---
Per nurse, the patient is to have a thoracentesis and a PICC placed this day. The patient remains intubated. SW contacted the patient's , Miguelito (ph#[phone]) to follow-up with her about any needs or concerns. Miguelito reports she has been getting updates through the weekend and this AM of the patient's status. Will continue to monitor.
--- NOTE | 2019-09-10 10:40 | NUR ---
Dr. Lock in room for thoracentesis. Consent completed via phone with the . Time out completed. Left thoracentesis performed by Dr. Lock. Specimen sent to lab for testing.
[2019-09-10 12:23] LABS: PLEURAL FLUID RBC 38000 /mm3 (0-0); PLEURAL FLUID WBC 202 /mm3
[2019-09-10 12:25] LABS: PLEURAL FLUID APPEARANCE CLOUDY; PLEURAL FLUID COLOR BROWN
[2019-09-10 12:33] LABS: GLUCOSE,PLEURAL FLUID 93 mg/dL; TOTAL PROTEIN,PLEURAL FLUID 3.5 gm/dL
--- NOTE | 2019-09-10 13:26 | NUR ---
Joan from [facility] contacted . The patient started services with [facility] on 08/18 and was seen 3 times that week. They were supposed to go out for another visit to discharge since the patient's thought that home health was not longer necessary. The visit was cancelled due to the patient being hosptialized. Joan (ph# [phone]).
--- NOTE | 2019-09-10 17:30 | NUR ---
Update given to Son and . Plan of care reviewed. Patient doing the same at this time with no decline or progression.
--- NOTE | 2019-09-10 19:10 | NUR ---
Bedside report given to FERMIN Krishnamurthy. Plan of care reviewed at this time. All lines, gtts, tubes and vent settings reviewed and discussed. Patient turned at this time. Coccyx examined by FERMIN Krishnamurthy. Care turned over at this time.
--- NOTE | 2019-09-10 19:10 | NUR ---
Bedside report received; patient care received. Assisted with repositioning. No concerns at this time.
[2019-09-11] VITALS (779 sets, daily range): BP systolic 93–118; BP diastolic 56–75; PULSE 72–99; TEMP 98.1–99.2; O2SAT 46–100
--- NOTE | 2019-09-11 03:29 | NUR ---
Resting in bed with eyes shut. Assisted with repositioning. Patient does not respond to verbal commands, but does grimace and attempt to lift up arms with any physical stimuli. Will continue to monitor.
[2019-09-11 05:21] LABS: BASO % 0.2 % (0.0-2.0); EOS # 0.1 (0.0-0.7); EOS % 2.8 % (0-4.0); GRAN # 3.1 (1.4-6.5); GRAN % 71.7 % (42.2-75.2); LYMPH # 0.5 (1.2-3.4); LYMPH % 11.7 % (20.0-51.0); MEAN CELL VOLUME 100 fl (80.0-100.0); MEAN CORPUSCULAR HGB CONC 29 g/dl (33.0-37.0); MEAN PLATELET VOLUME 10.2 fl (7.4-10.4); MONO # 0.6 (0.1-0.6); MONO % 12.9 % (1.7-9.3); PLATELET COUNT 83 K/mm3 (130-400); RED BLOOD COUNT 3.06 M/mm3 (4.20-5.60); REDCELL DISTRIBUTION WIDTH-CV 14.3 % (11.5-14.5)
--- NOTE | 2019-09-11 05:30 | NUR ---
Sedation vacation had not been done to this point, delaying weaning trial at this time.
[2019-09-11 05:42] LABS: CREATININE, serum 1.02 (0.66-1.25); MAGNESIUM 2.7 mg/dL (1.6-2.3); PHOSPHOROUS 2.9 mg/dL (2.5-4.5); POTASSIUM 3.8 mmol/L (3.4-5.0)
[2019-09-11 05:47] LABS: HEMATOCRIT 30.5 % (42.0-52.0); HEMOGLOBIN 8.9 g/dl (13.5-18.0); MEAN CORPUSCULAR HEMOGLOBIN 29 pg (27.0-31.0)
[2019-09-11 05:50] LABS: ARTERIAL BLD GAS O2 SATURATION 96.9 % (92-100); ARTERIAL BLD GAS TCO2 CT 28.5; ARTERIAL BLOOD GAS BASE EXCESS 1.6 (-2-2); ARTERIAL BLOOD GAS HCO3 27.1 meq/L (22-26); ARTERIAL BLOOD GAS PCO2 46.6 mmHg (35-45); ARTERIAL BLOOD GAS pH 7.38 (7.35-7.45)
[2019-09-11 09:40] LABS: ARTERIAL BLD GAS O2 SATURATION 96.9 % (92-100); ARTERIAL BLD GAS TCO2 CT 29.1; ARTERIAL BLOOD GAS BASE EXCESS 1.9 (-2-2); ARTERIAL BLOOD GAS HCO3 27.6 meq/L (22-26); ARTERIAL BLOOD GAS PO2 92.5 mmHg (80-100); ARTERIAL BLOOD GAS pH 7.37 (7.35-7.45)
--- NOTE | 2019-09-11 10:15 | NUR ---
PT EXTUBATED AND PLACE ON 4L OXYMASK PER DR CHOWDHURY ORDERS. PT SUCTIONED VIA ETT AND ORALLY PRIOR TO EXTUBATION. PT EXTUBATED WITH NO ISSUES. NO SIGNS OF RESPIRATORY DISTRESS. BLBS EQUAL. NO STRIDOR NOTED. VSS. SPO2 97%, HR 87, RR 22
--- NOTE | 2019-09-11 10:15 | NUR ---
Pt extubated to Oxymask with RT Chani and MD Ernie on unit Pt tolerated well. No dyspnea or use of accessory muscles for respiration observed from time of extubation to writing of this note Pt alert, oriented to self. Able to name spouse and children by name - disoriented on year (thinks it is ), pt surprised he is in [place], [place]. Pt able to follow most commands, at times pt looks other direction and mumbles incoherently Spouse Miguelito called and updated by myself and MD Ernie - informed plab of care is to repeat ABG at 1300 - if ABG indicates inadequate respiration spouse Miguelito wants the mechanical ventilator to be re-established...same plan requested by Miguelito if ABG at 1900 is abnormal.
[2019-09-11 13:45] LABS: ARTERIAL BLD GAS O2 SATURATION 98.2 % (92-100); ARTERIAL BLOOD GAS HCO3 27.5 meq/L (22-26); ARTERIAL BLOOD GAS PCO2 47.4 mmHg (35-45); ARTERIAL BLOOD GAS PO2 117.4 mmHg (80-100); ARTERIAL BLOOD GAS pH 7.38 (7.35-7.45)
--- NOTE | 2019-09-11 15:19 | NUR ---
LARRY contacted the patient's , Miguelito to discuss any concerns or needs. Miguelito was in good spirts. The patient's nurse, Jesus had the couple on speaker phone today. Will continue to monitor.
--- NOTE | 2019-09-11 17:55 | NUR ---
Pt oral mucous membrane and lips dry, oral care refused by pt. Pt making attempts to get out of bed, although pt is too weak to pull self upright - reorientation provided, pt agrees to stay in bed. Pt refusing discontinuation of RIJ central line at this time
[2019-09-11 20:58] LABS: ARTERIAL BLD GAS TCO2 CT 27.6; ARTERIAL BLOOD GAS BASE EXCESS 1.6 (-2-2); ARTERIAL BLOOD GAS HCO3 26.3 meq/L (22-26); ARTERIAL BLOOD GAS PCO2 41.7 mmHg (35-45); ARTERIAL BLOOD GAS pH 7.42 (7.35-7.45)
[2019-09-11 20:59] LABS: ARTERIAL BLOOD GAS PO2 171.4 mmHg (80-100)
--- NOTE | 2019-09-11 21:00 | NUR ---
Removed central line from right neck. Tolerated procedure well; no complications.
--- NOTE | 2019-09-11 23:00 | NUR ---
Patient attempting to remove BIPAP multiple times; tugging at mask and tubing. Attempted to reorient and explain importance of wearing the mask. Became agitated and swung arms at nurse when attempting to replace BIPAP. Removed BIPAP and replaced 3L NC. Hospitalist notified. Will continue to monitor.
[2019-09-12] VITALS (253 sets, daily range): BP systolic 110–149; BP diastolic 59–77; PULSE 81–136; TEMP 97.8–98.6; O2SAT 74–100
--- NOTE | 2019-09-12 | NUR ---
Continues to be intermittently agitated while attempting to assist with cares. Patient is alert and oriented to self only. Confusion has not changed since earlier assessment.
[2019-09-12 05:46] LABS: BASO % 0.2 % (0.0-2.0); EOS # 0.1 (0.0-0.7); EOS % 1.1 % (0-4.0); GRAN # 3.5 (1.4-6.5); GRAN % 76.1 % (42.2-75.2); LYMPH # 0.5 (1.2-3.4); LYMPH % 11.7 % (20.0-51.0); MEAN CELL VOLUME 98 fl (80.0-100.0); MEAN CORPUSCULAR HGB CONC 30 g/dl (33.0-37.0); MEAN PLATELET VOLUME 10.9 fl (7.4-10.4); MONO # 0.5 (0.1-0.6); MONO % 10.2 % (1.7-9.3); PLATELET COUNT 85 K/mm3 (130-400); REDCELL DISTRIBUTION WIDTH-CV 14.3 % (11.5-14.5)
[2019-09-12 05:49] LABS: HEMATOCRIT 31.4 % (42.0-52.0); HEMOGLOBIN 9.3 g/dl (13.5-18.0); MEAN CORPUSCULAR HEMOGLOBIN 29 pg (27.0-31.0)
[2019-09-12 06:02] LABS: ALBUMIN 2.8 gm/dL (3.5-5.0); BILIRUBIN,TOTAL 1.7 mg/dL (0.0-1.0); CALCIUM 8.8 mg/dL (8.4-10.2); CREATININE, serum 0.92 (0.66-1.25); MAGNESIUM 2.6 mg/dL (1.6-2.3); POTASSIUM 3.9 mmol/L (3.4-5.0); TOTAL PROTEIN 6.3 gm/dL (6.4-8.2)
--- NOTE | 2019-09-12 07:15 | NUR ---
Bedside report given to FERMIN Lee. Patient care transfered.
[2019-09-12 07:55] LABS: ARTERIAL BLD GAS O2 SATURATION 98.5 % (92-100); ARTERIAL BLOOD GAS BASE EXCESS 1.2 (-2-2); ARTERIAL BLOOD GAS HCO3 25.8 meq/L (22-26); ARTERIAL BLOOD GAS PCO2 40.8 mmHg (35-45); ARTERIAL BLOOD GAS PO2 118.3 mmHg (80-100); ARTERIAL BLOOD GAS pH 7.42 (7.35-7.45)
--- NOTE | 2019-09-12 09:00 | NUR ---
Pt out of bed to chair - heavy 2-assist from PT required for transfer. Call light in reach. Pt states "this is way more comfortable than the bed". Pt is still however confused on situation, year, and only able to follow aprox. 50% of commands before mumbling incoherently.
--- NOTE | 2019-09-12 09:40 | NUR ---
First visit from the ocean export agent. No needs right now.
--- NOTE | 2019-09-12 10:45 | NUR ---
Pt had bowel movement while in chair, attempting to get out of chair without help (pt unable to comprehend CallLight). Assitance of 3 required for pericare and transfer back to bed. Pt turned on right side. Redness on bottom observed again, no breakdown, ointment applied, pt turned to right side.
--- NOTE | 2019-09-12 11:53 | NUR ---
1128: Report phoned to FERMIN Birch 1145: Pt transfered from ICU bed to Medical bed using turning sheet, pt tolerated transfer well without line or tube compromise. Gaylynn,spouse called and updadted on transfer to [facility]
--- NOTE | 2019-09-12 18:58 | NUR ---
Patient transferred to floor from ICU. Is alert to self. Has been plesant with cares. Booth is to dependent drain, tubing without kinks. Respirations are even and nonlabored. BLEs are reddish/dark discolored due to PVD. Denies pain and facial expression shows no signs. did call to check on patient, did transfer call to patient room and he was able to hold phone and talk to . PICC flushes well and good blood return noted to both lumens. Call light and personal items are within reach.
[2019-09-12 20:46] LABS: ARTERIAL BLD GAS O2 SATURATION 88.7 % (92-100); ARTERIAL BLOOD GAS BASE EXCESS -3.9 (-2-2); ARTERIAL BLOOD GAS HCO3 25.8 meq/L (22-26); ARTERIAL BLOOD GAS PCO2 70.9 mmHg (35-45); ARTERIAL BLOOD GAS PO2 67.8 mmHg (80-100); ARTERIAL BLOOD GAS pH 7.18 (7.35-7.45)
--- NOTE | 2019-09-12 21:06 | NUR ---
PATIENT ARRIVES FROM MEDICAL FLOOR, FAST RESPIRATORY RATE SATS IN 80S, PREPARE FOR INTUBATION, VITALS RECORDED, LUNG SOUNDS DIMINISHED IN BASES OTHER PISANO CLEAR, PULSES ADEQUATE ALL EXTREMITIES, NO NEW EDEMA, PICC LINE RIGHT UPPER ARM SLUGGISH TO FLOW FLUIDS, 2132 BOLUS OF CARDIZEM 10 MG FOR 2 MINUTES CARDIZEM DRIP AT 5 MG/HR BEGINS BLUE PORT OF PICC LINE 2137 PROPOFOL 60 MCG PER ANATHESIOLOGIST, PICC LINE RED PORT, FOLLOWED BY FLUSH AND THEN SUCCINOCOLINE ADMINISTERED 300 MG, PATIENT INTUBATED WITH 8.0 TUBE AT 9 24 AT LIPS CO2 DETECTOR CHANGE COLOR GREEN TO GOLD, AIRFLOW TO BILATRIL UPPER CHEST NONE OVER ABDOMIN,
--- NOTE | 2019-09-12 21:10 | NUR ---
At appoximately 2019, telemetry called stating that patient's HR was sustaining 130s-140s. Upon checking on patient, RT in room given neb treatment. Updated RT and put order in for STAT EKG. Results called to [facility] at 2024: A-fib RVR. Requested to call cardiology, and for STAT ABG, as patient's respiratory rate was in the 30s, and oxygen had to be increased to 5 L/min via NC to get patient to 90%. Paged Dr. Ramirez, who called back at approximately 2029. Updated on patient. Wanted patient in ICU for maribel lawrence. Called house and assigned patient to room 8. Called Alice and updated. ABG results back, called to Alice. Gave report to Mehrdad, ICU nurse accepting patient at 2049. Alice in room to see patient. Called family. Alice stated that patient was going to be intubated. Called and notified warehouse associate driver and requested her to call in Anesthesia per Alice. Took patient down on [facility] with assistance to ICU.
[2019-09-12 22:22] LABS: MEAN CELL VOLUME 99 fl (80.0-100.0); MEAN CORPUSCULAR HEMOGLOBIN 29 pg (27.0-31.0); MEAN CORPUSCULAR HGB CONC 30 g/dl (33.0-37.0); MEAN PLATELET VOLUME 10.9 fl (7.4-10.4); PLATELET COUNT 150 K/mm3 (130-400); RED BLOOD COUNT 3.96 M/mm3 (4.20-5.60); REDCELL DISTRIBUTION WIDTH-CV 14.6 % (11.5-14.5)
[2019-09-12 22:24] LABS: HEMOGLOBIN 11.5 g/dl (13.5-18.0)
[2019-09-12 22:32] LABS: EOSINOPHIL 2 % (0-4); LYMPHOCYTE 7 % (20.0-51.0); NEUTROPHILS 82 % (42.0-75.2); PLATELET ESTIMATE NORMAL (NORMAL)
[2019-09-12 22:33] LABS: ALBUMIN 3.3 gm/dL (3.5-5.0); BILIRUBIN,TOTAL 2.2 mg/dL (0.0-1.0); CALCIUM 9.1 mg/dL (8.4-10.2); CREATININE, serum 1.25 (0.66-1.25); MAGNESIUM 2.7 mg/dL (1.6-2.3); PHOSPHOROUS 6.4 mg/dL (2.5-4.5); POTASSIUM 4.9 mmol/L (3.4-5.0); TOTAL PROTEIN 7.4 gm/dL (6.4-8.2)
[2019-09-12 23:29] LABS: ARTERIAL BLD GAS O2 SATURATION 95.7 % (92-100); ARTERIAL BLD GAS TCO2 CT 26.1; ARTERIAL BLOOD GAS BASE EXCESS -1.2 (-2-2); ARTERIAL BLOOD GAS HCO3 24.7 meq/L (22-26); ARTERIAL BLOOD GAS PCO2 46.1 mmHg (35-45); ARTERIAL BLOOD GAS PO2 79.7 mmHg (80-100); ARTERIAL BLOOD GAS pH 7.35 (7.35-7.45)
[2019-09-13] VITALS (635 sets, daily range): BP systolic 89–111; BP diastolic 55–78; PULSE 69–100; TEMP 97.7–98.4; O2SAT 76–100
[2019-09-13 05:43] LABS: ARTERIAL BLD GAS O2 SATURATION 98.7 % (92-100); ARTERIAL BLD GAS TCO2 CT 25.9; ARTERIAL BLOOD GAS BASE EXCESS -0.5 (-2-2); ARTERIAL BLOOD GAS HCO3 24.6 meq/L (22-26); ARTERIAL BLOOD GAS PCO2 42.1 mmHg (35-45); ARTERIAL BLOOD GAS pH 7.39 (7.35-7.45)
[2019-09-13 05:44] LABS: ARTERIAL BLOOD GAS PO2 139.4 mmHg (80-100)
[2019-09-13 05:48] LABS: BASO % 0.2 % (0.0-2.0); EOS % 0.3 % (0-4.0); GRAN % 82.8 % (42.2-75.2); LYMPH # 0.6 (1.2-3.4); LYMPH % 9.7 % (20.0-51.0); MEAN CELL VOLUME 99 fl (80.0-100.0); MEAN CORPUSCULAR HGB CONC 29 g/dl (33.0-37.0); MEAN PLATELET VOLUME 10.4 fl (7.4-10.4); MONO # 0.4 (0.1-0.6); MONO % 6.3 % (1.7-9.3); PLATELET COUNT 135 K/mm3 (130-400); RED BLOOD COUNT 3.21 M/mm3 (4.20-5.60); REDCELL DISTRIBUTION WIDTH-CV 14.6 % (11.5-14.5)
[2019-09-13 05:49] LABS: INR 1.4 (0.8-3.0)
[2019-09-13 05:54] LABS: ALBUMIN 2.5 gm/dL (3.5-5.0); BILIRUBIN,TOTAL 1.3 mg/dL (0.0-1.0); CALCIUM 8.8 mg/dL (8.4-10.2); CREATININE, serum 1.35 (0.66-1.25); MAGNESIUM 2.6 mg/dL (1.6-2.3); PHOSPHOROUS 3.9 mg/dL (2.5-4.5); POTASSIUM 4.2 mmol/L (3.4-5.0); TOTAL PROTEIN 5.9 gm/dL (6.4-8.2)
[2019-09-13 05:58] LABS: HEMATOCRIT 31.7 % (42.0-52.0); HEMOGLOBIN 9.3 g/dl (13.5-18.0); MEAN CORPUSCULAR HEMOGLOBIN 29 pg (27.0-31.0)
--- NOTE | 2019-09-13 10:17 | NUR ---
The patient is intubated. A goals of care/pallative care consult was ordered this day.
--- NOTE | 2019-09-13 11:28 | NUR ---
Spoke with , Miguelito today. She is very aware of her 's condition and reports that Dr Klein had told her about the trach and peg being done and that he would probably have to be on the vent for 6-8 weeks if all goes well. I asked her specifically, "What would Isaias tell us to do if we could have him thinkling clearly and he could understand his situation?". She replied "He would want everything done to keep him living--short of being a vegetable living on a machine". We talked about quality of life with a trach and peg, no eating or drinking, risk of removal of peg by confused pt would require restraints which he will fight against. She wants everything done to help him live. I did ask about code status and she told me that he has a defibrilator that will shock him (she advised it has already done that once here in the hospital) and if it is not able to bring him around, then we should allow him to peacefully . NO CPR! This was relayed to Juani CHRISTENSEN his primary nurse and to Kayce GILMAN. Lainey, case management, also participated on part of the call and Osirisdiaz is aware that pt may have to go to [place] or [place] for LTAC as beds become more scarce.
--- NOTE | 2019-09-13 11:56 | NUR ---
LARRY and Elain[facility] nurse spoke with the patient's , Miguelito to discuss [facility]. Miguelito wants do to everything because the patient would want that. Miguelito would like [facility] in . LARRY explained that there may not be a bed available in and the patient may go as far as [place]. She was agreeable to this. LARRY faxed referral to Torsten with [facility]. Awaiting response.
--- NOTE | 2019-09-13 16:00 | NUR ---
This RN calls with updates; questions answered. DT swelling to hands/fingers, wedding ring removed. states will send grandsons over to fruit or [place] and drop off hearing aides. WIll update when back from OR. 1700 Grandson here to drop off hearing aides and wedding ring (gold band) given to them in zip lock bag.
--- NOTE | 2019-09-13 16:16 | NUR ---
Torsten from [facility] contacted LARRY. [facility] can accept the patient and will be able to accept the patient tomorrow, 09/12. LARRY attempted to contact the patient's , Miguelito, she did not answer. Will continue to monitor.
--- NOTE | 2019-09-13 17:00 | NUR ---
PT GOING TO OR FOR A TRACHEOSTOMY AND PEG TUBE PLACED AT THIS TIME.
--- NOTE | 2019-09-13 17:00 | NUR ---
No sedation vacation at this time. Patient to OR via bed for schedule PEG and trach placement. Report to Liang CHRISTENSEN and Yessy LOWERY
--- NOTE | 2019-09-13 19:15 | NUR ---
Bedside report given to Mehrdad CHRISTENSEN. Medications and lines verified at this time
--- NOTE | 2019-09-13 20:00 | NUR ---
when cleaning trach site around stoma with trach tube securely in place patient has prulent drainage, clear with red tinge, dry 4x4 placed in same area to collect any more drainage. will continue to observe
[2019-09-14] VITALS (161 sets, daily range): BP systolic 90–132; BP diastolic 52–77; PULSE 77–114; TEMP 97.4–98.3; O2SAT 98–100
[2019-09-14 05:33] LABS: BASO % 0.3 % (0.0-2.0); EOS # 0.1 (0.0-0.7); EOS % 1.6 % (0-4.0); GRAN # 2.8 (1.4-6.5); GRAN % 76.5 % (42.2-75.2); LYMPH # 0.5 (1.2-3.4); LYMPH % 13.5 % (20.0-51.0); MEAN CELL VOLUME 98 fl (80.0-100.0); MEAN CORPUSCULAR HGB CONC 30 g/dl (33.0-37.0); MEAN PLATELET VOLUME 10.2 fl (7.4-10.4); MONO # 0.3 (0.1-0.6); MONO % 7.8 % (1.7-9.3); PLATELET COUNT 126 K/mm3 (130-400); RED BLOOD COUNT 3.13 M/mm3 (4.20-5.60); REDCELL DISTRIBUTION WIDTH-CV 14.6 % (11.5-14.5)
[2019-09-14 05:39] LABS: HEMATOCRIT 30.6 % (42.0-52.0); HEMOGLOBIN 9.1 g/dl (13.5-18.0); MEAN CORPUSCULAR HEMOGLOBIN 29 pg (27.0-31.0)
[2019-09-14 05:40] LABS: CALCIUM 8.7 mg/dL (8.4-10.2); CREATININE, serum 1.31 (0.66-1.25); MAGNESIUM 2.6 mg/dL (1.6-2.3); POTASSIUM 3.7 mmol/L (3.4-5.0)
--- NOTE | 2019-09-14 07:09 | NUR ---
Bedside report recieved from Mehrdad CHRISTENSEN, medications and lines verified.
--- NOTE | 2019-09-14 10:43 | NUR ---
The patient is to discharge today, 4/3 to [facility] in [place] room 120. The team was agreeable. LARRY contacted the patient's , Miguelito and she was agreeable. SW read the IM form to the patient's . The understood and gave verbal consent to sign IM form. The form was placed in chart. LARRY contacted [facility] and they will be here at approximately 1330 to transport the patient. SW to fax orders to (f# [phone]). The number for report is (#[phone]). There are no additional needs at this time.
--- NOTE | 2019-09-14 14:22 | NUR ---
Transferred to [facility] via [facility]. Report given to [facility]
--- NOTE | 2019-09-14 15:00 | NUR ---
Nurse to nurse report given to Jamil RN at [facility]
== END 2019-09-14 14:22 | DRG 4 ==
LOC: MEDICAL 03:25 → ICU 04:38 → SURG 04:38 → ICU 06:24 → MEDICAL 09-12 12:57 → ICU 09-12 21:16
PROVIDERS: Hospitalist; Internal Medicine Critical Care Medicine; Internal Medicine Pulmonary Disease; Nurse Practitioner Family; Physician Assistant; ADMIT Student in an Organized Health Care Education/Training Program
PROC: 0W993ZZ Drainage of Right Pleural Cavity, Percutaneous Approach (ICD-10-PCS; principal; 2019-09-06)
PROC: 05HM33Z Insertion of Infusion Device into Right Internal Jugular Vein, Percutaneous Approach (ICD-10-PCS; 2019-09-06)
PROC: 0W993ZZ Drainage of Right Pleural Cavity, Percutaneous Approach (ICD-10-PCS; 2019-09-10)
PROC: 02HV33Z Insertion of Infusion Device into Superior Vena Cava, Percutaneous Approach (ICD-10-PCS; 2019-09-10)
PROC: 0B113F4 Bypass Trachea to Cutaneous with Tracheostomy Device, Percutaneous Approach (ICD-10-PCS; 2019-09-13)
PROC: 0DH63UZ Insertion of Feeding Device into Stomach, Percutaneous Approach (ICD-10-PCS; 2019-09-13)
DX: J96.01 Acute respiratory failure with hypoxia (principal); G93.41 Metabolic encephalopathy; J18.9 Pneumonia, unspecified organism; I50.23 Acute on chronic systolic (congestive) heart failure; J90 Pleural effusion, not elsewhere classified; D69.3 Immune thrombocytopenic purpura; E87.3 Alkalosis; D68.9 Coagulation defect, unspecified; N17.9 Acute kidney failure, unspecified; E87.2 Acidosis; E87.1 Hypo-osmolality and hyponatremia; I42.9 Cardiomyopathy, unspecified; J96.02 Acute respiratory failure with hypercapnia; E78.5 Hyperlipidemia, unspecified; I25.10 Atherosclerotic heart disease of native coronary artery without angina pectoris; J44.9 Chronic obstructive pulmonary disease, unspecified; I48.91 Unspecified atrial fibrillation; F17.210 Nicotine dependence, cigarettes, uncomplicated; N40.0 Benign prostatic hyperplasia without lower urinary tract symptoms; M19.90 Unspecified osteoarthritis, unspecified site; G47.30 Sleep apnea, unspecified; T50.2X5A Adverse effect of carbonic-anhydrase inhibitors, benzothiadiazides and other diuretics, initial encounter; E04.1 Nontoxic single thyroid nodule; Z79.01 Long term (current) use of anticoagulants; Z95.1 Presence of aortocoronary bypass graft; Z95.0 Presence of cardiac pacemaker; Z90.49 Acquired absence of other specified parts of digestive tract; Z90.89 Acquired absence of other organs; Z95.818 Presence of other cardiac implants and grafts; Z87.01 Personal history of pneumonia (recurrent); Z79.82 Long term (current) use of aspirin; D69.6 Thrombocytopenia, unspecified; R00.8 Other abnormalities of heart beat; I27.20 Pulmonary hypertension, unspecified
CPT/HCPCS: 99223-AI; 99232-AI; 99233-AI; 99239; C1751; J0330; J1650; J1940; J2060; J2543; J2704; J3010; J3370; J3430; J3480; J7030; J7050